=== PATIENT | male | born 1950 | race Two or more races ===

== ENCOUNTER → 2016-07-05 | Outpatient (CLI) | payer BC, OTHER ==
--- NOTE | 2016-07-05 13:03 | REP ---
LUMBOSACRAL SPINE SERIES: Six views of lumbosacral spine performed. There is no compression fracture or malalignment. There is normal lumbar lordosis. There is no spondylolysis or spondylolisthesis. There is mild disc space narrowing and subchondral sclerosis at L4-5 and L5-S1. There is sclerosis and spurring of the posterior facet joints at those levels as well. The posterior elements are intact. IMPRESSION: Mild degenerative changes. No fracture or dislocation. Signed by Jatin Blanc MD 07/05/2016 02:20 P
== END ==
LOC: M LRY 11:52
PROVIDERS: ATTEND Nurse Practitioner Family
DX: M54.5 Low back pain (principal)

== ENCOUNTER → 2016-07-08 | Outpatient (REF) | payer BC, OTHER ==
[2016-07-08 19:23] LABS: MEAN CORPUSCULAR HEMOGLOBIN 29.7 pg (27.0-33.0); MEAN CORPUSCULAR HGB CONC 33.7 g/dl (32.0-36.5); MEAN CORPUSCULAR VOLUME 88.1 fl (80.0-96.0); RED CELL DISTRIBUTION WIDTH 13.3 % (11.5-14.5); WHITE BLOOD COUNT 8.3 K/mm3 (4.0-10.0)
[2016-07-08 19:56] LABS: ALBUMIN 4.2 GM/DL (3.2-5.2); ALBUMIN/GLOBULIN RATIO 1.68 (1.00-1.93); ALKALINE PHOSPHATASE 90 U/L (45-117); ALT/SGPT 20 U/L (12-78); ANION GAP 6 MEQ/L (8-16); AST/SGOT 12 U/L (15-37); BILIRUBIN,TOTAL 0.6 MG/DL (0.2-1.0); BLOOD UREA NITROGEN 21 MG/DL (7-18); CALCIUM LEVEL 9.2 MG/DL (8.8-10.2); CARBON DIOXIDE LEVEL 29 MEQ/L (21-32); CHLORIDE LEVEL 105 MEQ/L (98-107); CHOLESTEROL LEVEL 239 MG/DL (<200); CREATININE FOR GFR 1.06 MG/DL (0.70-1.30); GLOMERULAR FILTRATION RATE > 60.0 (>49); GLUCOSE, FASTING 105 MG/DL (80-110); POTASSIUM SERUM 4.6 MEQ/L (3.5-5.1); SODIUM LEVEL 140 MEQ/L (136-145); TOTAL PROTEIN 6.7 GM/DL (6.4-8.2); TRIGLYCERIDES LEVEL 78 MG/DL (<150)
== END ==
LOC: M SFHCLERA 17:25
PROVIDERS: ATTEND Family Medicine
DX: M54.42 Lumbago with sciatica, left side (principal); E78.00 Pure hypercholesterolemia, unspecified; F17.200 Nicotine dependence, unspecified, uncomplicated

== ENCOUNTER → 2016-07-14 | Outpatient (CLI) | payer OTHER ==
--- NOTE | 2016-07-14 20:51 | REP ---
MRI PELVIS WITHOUT CONTRAST (SACRUM): 07/14/2016. Clinical history: Acute left-sided low back pain, no known injury. Symptoms 2 weeks duration. Technique: Coronal T1 fat suppressed T2 and STIR, sagittal fat suppressed T2 with axial T1 and fat suppressed T2 sequences provided. Comparison: CT abdomen pelvis 05/04/2012. Findings. Sacral ala show no marrow edema or fracture on either side. The SI joints intact. There is no fluid or widening of those SI joints. No signs of sacral ileitis on an acute basis or other significant finding. That portion of the iliac bone included is grossly intact. Sacral foramina symmetric. There are Tarlov cysts bilaterally at the second sacral segment. That portion of L5 included and its disc space were unremarkable. No abnormal signal on the fat-suppressed T2 sequences through the marrow of the sacrum, coccyx and adjacent iliac bones. Sagittal images confirm the L5 vertebral body and the L5-S1 disc space intact. No presacral soft tissue mass, fluid or other acute finding. Impression: 1. No MR evidence of sacral fracture, foraminal encroachment, SI joint fluid or sacroiliitis. 2. Adjacent iliac bones and that portion of L5 and the L5-S1 disc level intact.3. Tarlov cysts in the neural canal at the S2 level as variation. Signed by Ghanshyam Lomax MD 07/15/2016 01:08 P
--- NOTE | 2016-07-15 08:43 | REP ---
MRI LUMBAR SPINE WITHOUT CONTRAST: HISTORY: Back pain. Decreased signal intensity on T2-weighted images is present in the L4-5 and L5-S1 intervertebral discs. The discs are decreased in height. These findings are consistent with disc degeneration. There is no disc bulge or herniation at the L1-2 through L3-4 levels. There is hypertrophy of the posterior articulating facets at the L2-3 and L3-4 levels. The nerves exit the neural foramina without compression. A diffuse disc bulge and small left paracentral disc extrusion are present at the L4-5 level. There is inferior migration of disc material. There is minimal compression of the thecal sac and left L5 nerve as it exits the thecal sac and in the left L5 lateral recess. There is hypertrophy of the posterior articulating facets. The L4 nerves exit the neural foramina without compression. A diffuse disc bulge and small left paracentral disc protrusion are present at the L5-S1 level. There is minimal compression of the thecal sac and left S1 nerve as it exits the thecal sac. There is hypertrophy in the posterior articulating facets. The L5 nerves exit the neural foramina without compression. The conus medullaris is normal in appearance terminating at the level of the L1 vertebral body. There is minimal ectasia of the thecal sac at the S1 level. Normal signal intensity is present in the lumbar vertebral bodies. IMPRESSION: 1. Diffuse disc bulge and small left paracentral disc extrusion at the L4-5 level with minimal compression of the thecal sac and left L5 nerve as it exits the thecal sac and in the left L5 lateral recess. 2. Diffuse disc bulge and small left paracentral disc protrusion at the L5-S1 level with minimal compression of the thecal sac and left S1 nerve as it exits the thecal sac. Signed by Kwadwo De La Cruz MD 07/15/2016 08:47 A
== END ==
LOC: M RAD 17:42
PROVIDERS: ATTEND Family Medicine
DX: M51.26 Other intervertebral disc displacement, lumbar region (principal); M51.27 Other intervertebral disc displacement, lumbosacral region; G58.9 Mononeuropathy, unspecified; M54.42 Lumbago with sciatica, left side

== ENCOUNTER → 2016-09-20 | Outpatient (CLI) | payer OTHER ==
[~2016-09-20] MED LIST: ISOVUE-370 76% 100ML VIAL (Q9967) As Ordered ONE
--- NOTE | 2016-09-23 07:38 | REP ---
Clinical: Follow-up pulmonary nodule. Comparison: 05/26/2016. Findings: Advanced chronic COPD and emphysematous changes are appreciated along with predominately by apical scarring. The 2.3 cm solid lesion on prior examination now appears cavitary with mildly irregular wall thickening and small nodular components. No other obvious, significant nodule, consolidation or mass lesion is appreciated. Tracheobronchial tree is patent. No significant adenopathy. Thoracic aorta, heart and pericardium are normal. Surrounding musculoskeletal structures are intact. Limited evaluation of the upper abdomen demonstrates normal bilateral adrenal glands. Impression: 1. Previously noted solid left upper lobe lesion now appears cavitary with subtle irregular wall thickening and nodular components. Correlation with previous biopsy results and follow-up in 3-6 months may be warranted. 2. Chronic advanced COPD and emphysematous changes. 3. No further new, acute mediastinal or pleuroparenchymal process identified. Signed by Ambrocio Long MD 09/23/2016 07:30 A
== END ==
LOC: M RAD 14:27
PROVIDERS: ATTEND Family Medicine
DX: R91.1 Solitary pulmonary nodule (principal); J44.9 Chronic obstructive pulmonary disease, unspecified

== ENCOUNTER → 2016-11-29 | Outpatient (CLI) | payer OTHER ==
--- NOTE | 2016-11-30 00:30 | REP ---
Clinical: Inguinal pain with history of prior left hernia repair. Technique: Real time puente scale ultrasound examination using linear high frequency transducer. Findings: Directed ultrasound examination of the bilateral groin/inguinal canals demonstrates normal subcutaneous tissues and appearance without evidence for hernia. Impression: No obvious inguinal hernia identified bilaterally. Signed by Ambrocio Long MD 11/30/2016 12:21 A
== END ==
LOC: M RAD 13:22
PROVIDERS: ATTEND Family Medicine
DX: K40.90 Unilateral inguinal hernia, without obstruction or gangrene, not specified as recurrent (principal)

== ENCOUNTER → 2016-12-01 | Outpatient (CLI) | payer OTHER ==
[2016-12-05 14:10] LABS: BLASTOMYCES ANTIBODY LEVEL Negative (Neg:<1:1); CRYPTOCOCCUS ANTIGEN SER Negative (Negative); HISTOPLASMOSIS ANTIBODY Negative (Neg:<1:1); SJOGREN'S ANTI SS-A <0.2 AI (0.0-0.9); SJOGREN'S ANTI SS-B <0.2 AI (0.0-0.9)
[2016-12-07 06:29] LABS: COCCIDIOMYCOSIS ANTIBODY NEGATIVE (NEGATIVE)
== END ==
LOC: M SMT 10:01
PROVIDERS: ATTEND Internal Medicine Pulmonary Disease
DX: R91.1 Solitary pulmonary nodule (principal)

== ENCOUNTER → 2017-01-25 | Outpatient (CLI) | payer OTHER ==
--- NOTE | 2017-01-25 12:00 | REP ---
Clinical: Solitary pulmonary nodule. Comparison: 09/20/2016, 05/26/2016, 07/15/2015. Findings: Advanced COPD and emphysematous changes are appreciated along with extensive biapical scarring (left greater than right) which remains stable compared to 07/15/2015. No further pulmonary parenchymal consolidation, nodule or mass lesion identified. No pleural effusion/reaction or pneumothorax. Tracheobronchial tree is patent. No obvious adenopathy. Mediastinum demonstrates atherosclerotic changes to the thoracic aorta and coronary arteries without aortic aneurysm or cardiomegaly. No pericardial effusion. Surrounding musculoskeletal structures demonstrate age-related degenerative changes. Limited evaluation of the upper abdomen demonstrates normal bilateral adrenal glands. Impression: 1. Advanced COPD and emphysematous changes. 2. Biapical scarring (left greater than right) improved / stable compared to 07/15/2015. Specifically, the cavitary lesion in the periphery of the left upper lung zone lacks the previously noted soft tissue nodular components were identified on prior examinations. 3. No new acute mediastinal or pleuroparenchymal process is appreciated. In light of the above-mentioned findings which although appear improved, active process cannot definitively be excluded and follow-up examination at 9-12 months may be warranted. Signed by Ambrocio Long MD 01/25/2017 11:51 A
== END ==
LOC: M RAD 11:21
PROVIDERS: ATTEND Internal Medicine Pulmonary Disease
DX: R91.1 Solitary pulmonary nodule (principal); J44.9 Chronic obstructive pulmonary disease, unspecified

== ENCOUNTER → 2017-08-03 | Outpatient (CLI) | payer OTHER | LOC: M RAD 10:38 | DX: R91.1 Solitary pulmonary nodule (principal); J44.9 Chronic obstructive pulmonary disease, unspecified | CPT/HCPCS: 71250 ==

== ENCOUNTER → 2018-06-06 | Outpatient (CLI) | payer MEDICARE, OTHER ==
--- NOTE | 2018-06-06 15:27 | REP ---
Chest two views HISTORY: Pulmonary nodule Comparison: None A minimal increase in interstitial markings is present in the lungs consistent with chronic interstitial change. Linear densities are present in the upper lobes consistent with scarring. The heart is normal in size. The pulmonary vasculature is normal in appearance. The bony structure is intact. IMPRESSION: 1. Chronic interstitial change. 2. Bilateral upper lobe scarring miles Electronically Signed by Kwadwo De La Cruz MD 06/06/2018 03:19 P
== END ==
LOC: M RAD 14:41
PROVIDERS: ATTEND Internal Medicine Pulmonary Disease
DX: R91.1 Solitary pulmonary nodule (principal); J84.9 Interstitial pulmonary disease, unspecified

== ENCOUNTER → 2018-08-16 | Outpatient (CLI) | payer OTHER ==
--- NOTE | 2018-08-16 15:38 | REP ---
Clinical: Lung screening. History smoking. Comparison: 08/03/2017, 09/20/2016 Technique: Axial low-dose noncontrast images from the thoracic inlet to the upper abdomen using lung screening technique. Findings: The lung ashby demonstrate advanced COPD/emphysematous changes along with scattered scarring including scarring in the periphery of the left upper to mid lung zone with 1.8 cm nodular component along the periphery of the left apex and 2 cm cavitary component along the periphery of the mid left upper lobe. These findings appear essentially stable when compared through 09/20/2016. No new, acute nodule or mass lesion is appreciated. No pleural effusion. No pneumothorax. Tracheobronchial tree again demonstrates moderate chronic bronchiectasis. Atherosclerotic changes to the thoracic aorta and coronary arteries noted. Impression: 1. Lung-RADS category I-S. Advanced COPD/emphysematous changes with considerable elements of scarring including stable chronic nodular mass in the left apex and 2 cm cavitary area in the periphery of the left upper lobe. 2. Management recommendations include annual low-dose CT evaluation. Electronically Signed by Amrbocio Long MD 08/16/2018 03:29 P
== END ==
LOC: M RAD 13:01
PROVIDERS: ATTEND Internal Medicine Pulmonary Disease
DX: Z12.2 Encounter for screening for malignant neoplasm of respiratory organs (principal); F17.218 Nicotine dependence, cigarettes, with other nicotine-induced disorders

== ENCOUNTER → 2018-11-09 | Outpatient (CLI) | payer OTHER ==
[2018-11-09 13:08] LABS: BASO # 0.1 10^3/uL (0.0-0.2); BASO % 0.5 % (0.0-1.0); EOS % 0.2 % (0.0-3.0); LYMPH # 1.2 10^3/uL (1.5-4.5); LYMPH % 11.8 % (24.0-44.0); MEAN CORPUSCULAR HEMOGLOBIN 30.8 pg (27.0-33.0); MEAN CORPUSCULAR HGB CONC 34.1 g/dl (32.0-36.5); MEAN CORPUSCULAR VOLUME 90.1 fl (80.0-96.0); MONO # 1.1 10^3/uL (0.0-0.8); MONO % 10.5 % (0.0-5.0); NEUTROPHILS # 7.9 10^3/uL (1.8-7.7); NEUTROPHILS % 76.2 % (36.0-66.0); PLATELET COUNT, AUTOMATED 150 10^3/uL (150-450); RED BLOOD COUNT 4.55 10^6/uL (4.30-6.10); WHITE BLOOD COUNT 10.4 10^3/uL (4.0-10.0)
== END ==
LOC: M WUC 11:34
PROVIDERS: ATTEND Physician Assistant
DX: L03.115 Cellulitis of right lower limb (principal)

== ENCOUNTER → 2019-08-20 | Outpatient (CLI) | payer OTHER ==
--- NOTE | 2019-08-20 15:28 | REP ---
REASON: Chronic lung disease. COMPARISON: Multiple, the latest 08/16/2018. As per the protocol only lung window images were sent to the read station for interpretation. Once again, there is rather marked appearing chronic emphysematous change with lung field hyperexpansion, cylindrical bronchiectasis, biapical pleural parenchymal scarring, scattered lung nodules, and unchanged cavitary lesion in the left upper lobe. No definite new abnormal nodules, mass, or opacities have developed. Grossly the imaged upper abdomen and imaged osseous structures are unchanged. Grossly, the mediastinum and pulmonary shauna are unchanged. IMPRESSION: Stable low dose scarring CT examination of the lungs with chronic changes as described above. Lung-RADS category 2S. The small nodule seen in the left upper lobe is stable. Electronically Signed by Robert Marks DO 08/20/2019 04:10 P
== END ==
LOC: M RAD 13:15
PROVIDERS: ATTEND Internal Medicine Pulmonary Disease
DX: Z12.2 Encounter for screening for malignant neoplasm of respiratory organs (principal); F17.218 Nicotine dependence, cigarettes, with other nicotine-induced disorders; R91.8 Other nonspecific abnormal finding of lung field; J44.9 Chronic obstructive pulmonary disease, unspecified

== ENCOUNTER → 2020-08-25 | Outpatient (CLI) | payer OTHER ==
--- NOTE | 2020-08-26 02:50 | REP ---
INDICATION: NICOTINE DEPENDENCE COMPARISON: Multiple examinations dating through 09/20/2016 TECHNIQUE: Axial noncontrast images from the thoracic inlet to the upper abdomen using low-dose lung screening technique (LDCT). FINDINGS: Advanced COPD/emphysematous changes with scattered fibrosis and bronchiectasis noted bilaterally including moderate somewhat nodular biapical scarring which appears relative stable as compared with multiple prior examinations. Along the inferior margin of the left upper lobe scarring is a currently solid-appearing somewhat triangular soft tissue area measuring roughly 18 mm (series 201 images 32) which on all prior examinations appeared predominately cavitary. While this may represent chronic scarring, active solid forming process cannot be excluded. A small adjacent 3 mm nodule is also identified which is unchanged compared with 2019. No further suspicious consolidation, nodule or mass lesion identified. IMPRESSION: 1. Lung-RADS category 4A with new 18 mm solid density at a previously noted cavitary lesion in the left upper lobe. Management recommendations include PET-CT and/or 3 month low-dose CT follow-up. 2. Underlying advanced emphysematous disease. <Electronically signed by Ambrocio Long > 08/26/20 [id number]
== END ==
LOC: M RAD 13:41
PROVIDERS: ATTEND Internal Medicine Pulmonary Disease
DX: F17.218 Nicotine dependence, cigarettes, with other nicotine-induced disorders (principal); R91.8 Other nonspecific abnormal finding of lung field

== ENCOUNTER → 2020-09-16 | Outpatient (CLI) | payer OTHER ==
--- NOTE | 2020-09-16 13:19 | REP ---
INDICATION: DIAGNOSING PULMONARY NODULE. COMPARISON: Comparison CT studies August 25, 2020 and August 20, 2019. Prior studies from August 16, 2018 and August 03, 2017 are also reviewed.. TECHNIQUE: Forty-nine minutes following the intravenous injection of a 16.72 mCi dose of F-18 FDG, three-dimensional PET scintigraphy is acquired from the skull base to the proximal thighs. Triplanar noncontrast CT scanning is acquired through the same anatomic range for attenuation correction, and image registration with scan parameters optimized to minimize radiation exposure to the patient. PET scintigraphy and CT datasets were fused and displayed on a workstation with multiplanar and projection display capability. FINDINGS: Incidental findings include a 4.1 cm infrarenal abdominal aortic aneurysm. In addition, there is intrarenal nephrolithiasis with a 3 mm calculus in the lower pole collecting system on the right. No hydronephrosis is seen. Head and neck soft tissues are unremarkable. There is no abnormal hypermetabolic uptake within the chest. The left apical pleuroparenchymal fibrosis shows no discernible FDG accumulation, maximum SUV value 1.18. The recently described nodule in the left upper lobe just below this has maximum SUV value of 1.29. No abnormal hypermetabolic pulmonary parenchymal uptake is seen. No hilar or mediastinal hypermetabolic fahad uptake is seen. In the abdomen and pelvis there is normal distribution of FDG PET activity. No abnormal hypermetabolic uptake is seen in the abdomen or pelvis. IMPRESSION: Negative PET scintigraphy. The nodular opacities in the left upper lobe are not hypermetabolic. Follow-up advised. Incidental note is made of a 4.1 cm infrarenal abdominal aortic aneurysm <Electronically signed by Duran Dorado > 09/16/20 [id number]
== END ==
LOC: M PLARAD 09:41
PROVIDERS: ATTEND Internal Medicine Pulmonary Disease
DX: R91.1 Solitary pulmonary nodule (principal); I71.4 Abdominal aortic aneurysm, without rupture
CPT/HCPCS: 78815; A9552

== ENCOUNTER → 2020-10-28 | Outpatient (REF) | payer OTHER ==
[~2020-10-28] MED LIST changes: +FLOM0.4C39 PO; -ISOVUE-370 76% 100ML VIAL (Q9967) As Ordered ONE
== END ==
LOC: M SFHCLERA 15:46
PROVIDERS: ATTEND Nurse Practitioner Family
DX: R35.0 Frequency of micturition (principal)

== ENCOUNTER 2020-10-29 05:15 | Emergency (ER) | payer OTHER ==
[~2020-10-29] VITALS: Ht 172.7 cm; Wt 69.1 kg
[2020-10-29] MEDS ORDERED: NS 1,000 ML IV ONE (06:40)
[2020-10-29 07:02] LABS: BASO # 0.1 10^3/uL (0.0-0.2); BASO % 0.6 % (0.0-1.0); EOS % 0.1 % (0.0-3.0); HEMATOCRIT 42.8 % (42.0-52.0); HEMOGLOBIN 14.8 g/dl (13.5-17.5); LYMPH # 0.9 10^3/uL (1.5-5.0); MEAN CORPUSCULAR HEMOGLOBIN 31.2 pg (27.0-33.0); MEAN CORPUSCULAR HGB CONC 34.6 g/dl (32.0-36.5); MEAN CORPUSCULAR VOLUME 90.1 fl (80.0-96.0); MONO # 0.5 10^3/uL (0.0-0.8); NEUTROPHILS # 11.1 10^3/uL (1.5-8.5); NEUTROPHILS % 87.4 % (36.0-66.0); PLATELET COUNT, AUTOMATED 144 10^3/uL (150-450); RED BLOOD COUNT 4.75 10^6/uL (4.30-6.10); WHITE BLOOD COUNT 12.7 10^3/uL (4.0-10.0)
--- NOTE | 2020-10-29 07:11 | REPVR ---
PROCEDURE INFORMATION: Exam: CT Abdomen And Pelvis Without Contrast Exam date and time: 10/29/2020 5:49 AM Age: 69 years old Clinical indication: Abdominal pain; Flank; Left; Additional info: Flank pain, h/o stones TECHNIQUE: Imaging protocol: Computed tomography of the abdomen and pelvis without contrast. Radiation optimization: All CT scans at this facility use at least one of these dose optimization techniques: automated exposure control; mA and/or kV adjustment per patient size (includes targeted exams where dose is matched to clinical indication); or iterative reconstruction. COMPARISON: 1. PT PET/CT Skull/mid thigh 09/16/2020 11:[address] Chest with contrast 09/20/2016 2:49:43 PM FINDINGS: Lungs: Emphysema noted at the lung bases. No consolidation. Liver: Redemonstration of a subtle hypodensity within the lateral segment of the left hepatic lobe which corresponds to a hemangioma noted on [address] Few subcentimeter hypodensities within the liver, too small to accurately characterize. Gallbladder and bile ducts: No calcified gallstones. No ductal dilatation. Pancreas: Unremarkable. No ductal dilatation. Spleen: Stable mild splenomegaly (13 cm). Adrenal glands: Unremarkable. No mass. Kidneys and ureters: Mild left hydronephrosis and perinephric stranding. Left hydroureter and periureteral stranding with dilatation of the left ureter down to the level of the urinary bladder where there is a 3 mm calculus perched at the left ureteral orifice. Bilateral nephrolithiasis with a 4 mm calculus within the lower pole of the right kidney and a punctate few mm calculus within the midpole of the left kidney. No hydronephrosis on the right. Stomach and bowel: Colonic diverticulosis. No acute diverticulitis. No obstruction. Appendix: Normal appendix. Intraperitoneal space: No free fluid. No free air. Vasculature: Atherosclerosis. Infrarenal abdominal aortic aneurysm measuring 4.1 cm AP by 4.4 cm transverse, stable when compared to the recent PET CT when measured at the same level. No rupture. Lymph nodes: Unremarkable. No enlarged lymph nodes. Urinary bladder: Unremarkable as visualized. Reproductive: Mild enlargement of the prostate gland. Bones/joints: Bones are stable. Mild degenerative changes. No fracture. Soft tissues: Surgical clips within the inguinal regions. Fat containing left inguinal hernia. IMPRESSION: 1. Left obstructive uropathy with mild left hydronephrosis and hydroureter secondary to a 3 mm calculus within the urinary bladder perched at the left ureteral orifice. 2. Bilateral nephrolithiasis. 3. Stable infrarenal abdominal aortic aneurysm, 4.1 x 4.4 cm. 4. Colonic diverticulosis. No acute diverticulitis. No obstruction. 5. Additional non-emergent findings, as discussed above. Electronically signed by: Ambrocio Parks On 10/29/2020 07:11:43 AM
[2020-10-29 07:28] LABS: ALBUMIN 3.4 GM/DL (3.2-5.2); ALT/SGPT 16 U/L (12-78); BILIRUBIN,DIRECT 0.1 MG/DL (0.0-0.2); BILIRUBIN,TOTAL 0.7 MG/DL (0.2-1.0); BLOOD UREA NITROGEN 17 MG/DL (7-18); CALCIUM LEVEL 8.9 MG/DL (8.8-10.2); CARBON DIOXIDE LEVEL 27 MEQ/L (21-32); CHLORIDE LEVEL 108 MEQ/L (98-107); CREATININE FOR GFR 1.14 MG/DL (0.70-1.30); GLOMERULAR FILTRATION RATE > 60.0 (>49); GLUCOSE, FASTING 124 MG/DL (70-100); LIPASE 124 U/L (73-393); POTASSIUM SERUM 3.8 MEQ/L (3.5-5.1); SODIUM LEVEL 142 MEQ/L (136-145)
[2020-10-29] MEDS ORDERED: FLOM0.4C39 PO (08:39)
[2020-10-29 08:55] VITALS: BP 133/61
--- NOTE | 2020-10-30 15:13 | ED PDOC ---
Post-Departure Follow-Up eugene stephens faxed formal report of ct abd/p for fu Nurys Pinto MD Oct 30, 2020 15:13
== END 2020-10-29 08:57 | disposition home or self-care (01) ==
LOC: M ED 05:15
DX: N23 Unspecified renal colic (principal); N13.2 Hydronephrosis with renal and ureteral calculous obstruction; N13.4 Hydroureter; I71.4 Abdominal aortic aneurysm, without rupture; Z87.442 Personal history of urinary calculi; Z87.448 Personal history of other diseases of urinary system; J44.9 Chronic obstructive pulmonary disease, unspecified; R91.1 Solitary pulmonary nodule; F17.200 Nicotine dependence, unspecified, uncomplicated; F12.10 Cannabis abuse, uncomplicated; Z84.1 Family history of disorders of kidney and ureter; I70.90 Unspecified atherosclerosis; K40.90 Unilateral inguinal hernia, without obstruction or gangrene, not specified as recurrent; R93.2 Abnormal findings on diagnostic imaging of liver and biliary tract; R16.1 Splenomegaly, not elsewhere classified

== ENCOUNTER 2020-11-24 05:23 | Emergency (ER) | payer OTHER ==
[~2020-11-24] VITALS: Ht 172.7 cm; Wt 61.4 kg
[2020-11-24] MEDS ORDERED: KETOROLAC 30 MG/ML 1ML VIAL IV ONE (05:40)
--- NOTE | 2020-11-24 07:18 | REPVR ---
PROCEDURE INFORMATION: Exam: CT Abdomen And Pelvis Without Contrast Exam date and time: 11/24/2020 5:49 AM Age: 69 years old Clinical indication: Abdominal pain; Flank; Right; Additional info: Right renal colic TECHNIQUE: Imaging protocol: Computed tomography of the abdomen and pelvis without contrast. Radiation optimization: All CT scans at this facility use at least one of these dose optimization techniques: automated exposure control; mA and/or kV adjustment per patient size (includes targeted exams where dose is matched to clinical indication); or iterative reconstruction. COMPARISON: 1. PT PET/CT Skull/mid thigh 09/16/2020 11:02:[address] ABD PELVIS W/O CONTRAST 10/29/2020 5:54 AM FINDINGS: Lungs: Emphysematous lung disease. Liver: Subtle hypodense lesion in the left hepatic lobe measuring 2.0 cm. Several other small hypodense lesions in the liver measuring up to 5 mm. Gallbladder and bile ducts: Normal. No calcified stones. No ductal dilation. Pancreas: Normal. No ductal dilation. Spleen: Normal. No splenomegaly. Adrenal glands: Normal. No mass. Kidneys and ureters: Moderate right hydronephrosis. Stone in the mid right ureter measuring 3 x 2 x 3 mm. No left hydronephrosis. Hypodense lesion in the upper pole of the left kidney measuring 10 mm. Punctate nonobstructive stone in the upper pole of left kidney. Stomach and bowel: Sigmoid diverticulosis without diverticulitis. No abnormal bowel dilatation. No abnormal bowel wall thickening. Small sliding-type gastric hiatal hernia. Appendix: Appendix is normal. Intraperitoneal space: Unremarkable. No free air. No significant fluid collection. Vasculature: Severe calcified atherosclerotic disease. Fusiform infrarenal abdominal aortic aneurysm measuring 4.1 x 4.3 cm. No evidence of rupture. Lymph nodes: Unremarkable. No enlarged lymph nodes. Urinary bladder: Unremarkable as visualized. Reproductive: Prostate is normal in size. Bones/joints: Unremarkable. No acute fracture. Soft tissues: Status post bilateral inguinal hernia repair. Recurrent small left inguinal hernia containing fat. IMPRESSION: 1. Moderate right hydronephrosis with obstructive mid ureteral stone. 2. Punctate nonobstructive stone in the left kidney. 3. Hypodense lesion in the left hepatic lobe. Consistent with known hemangioma. No change from prior. 4. Several other small hypodense lesions in the liver measuring up to 5 mm. Probably benign lesions. 5. Status post bilateral inguinal hernia repair. 6. Recurrent small left inguinal hernia containing fat. No change from prior. 7. Emphysematous lung disease. COMMENTS: Consistent with the [employer]'s Incidental Findings Committee white paper (J Am Cathy Radiol 2018): Any incidental renal lesion less than 1 cm or classified as too small to characterize, or any incidental cystic renal lesion characterized as simple-appearing, is likely benign. No follow-up imaging is recommended for these lesions per consensus recommendations based on imaging criteria. Electronically signed by: Josue Shahid On 11/24/2020 07:17:41 AM
[2020-11-24] MEDS ORDERED: IBUP-1022 PO (07:24)
[2020-11-24] MEDS ORDERED: FLOM0.4C39 PO (07:25)
[2020-11-24] MEDS ORDERED: PERC5TAB12 PO (07:26)
[2020-11-24] MEDS ORDERED: TAMSULOSIN 0.4 MG CAP PO ONE (07:30)
[2020-11-24] MEDS ORDERED: MORPHINE 4 MG/ML 1ML VIAL/SYRINGE (J2270) IV ONE (07:30)
[2020-11-24] MEDS ORDERED: MORPHINE 2 MG/ML 1ML VIAL (J2270) IV ONE (07:35)
[2020-11-24] MEDS ORDERED: NS 1,000 ML IV ONE (07:35)
[2020-11-24 09:00] VITALS: BP 130/74
--- NOTE | 2020-11-26 11:03 | ED PDOC ---
Post-Departure Follow-Up ct abd/p faxed to dr barboza for fu Nurys Pinto MD Nov 26, 2020 11:03
== END 2020-11-24 09:08 | disposition home or self-care (01) ==
LOC: M ED 05:23
DX: N23 Unspecified renal colic (principal); N13.2 Hydronephrosis with renal and ureteral calculous obstruction; K76.89 Other specified diseases of liver; J43.9 Emphysema, unspecified; F17.200 Nicotine dependence, unspecified, uncomplicated; Z79.899 Other long term (current) drug therapy
CPT/HCPCS: 74176; 80047; 81001; 96374; 96375; 99284; J1885; J2270

== ENCOUNTER → 2021-03-25 | Outpatient (CLI) | payer OTHER ==
[~2021-03-25] MED LIST changes: +IBUP-1022 PO; +PERC5TAB12 PO
--- NOTE | 2021-03-25 18:15 | REP ---
INDICATION: SOLITARY PULMONARY NODULE. COMPARISON: Low-dose screening CT 08/25/2020, 08/20/2019; CT 08/03/2017 TECHNIQUE: Noncontrast scanning with coronal and sagittal reconstructions provided FINDINGS: The lung ashby show hyperinflation with bullous emphysematous changes quite severe but stable. The left upper lobe peripheral lesion with stranding towards the hilum as a solid character as on 08/25/2020 but was previously cavitary lesion. There are some calcifications within this on this tissue windows. However the pattern is NOT that of a clearly benign densely calcified granuloma. Bronchiectatic changes are again noted. The other zone of the asymmetric scarring in the left apex and to a much lesser degree right apex appear unchanged prominent parenchymal bullae in both apices right greater than left. No pleural effusion, pleural plaque with calcification, acute infiltrate or new lesions. Heart is not enlarged. There are some coronary artery calcifications. No pericardial thickening or effusion. The aorta is without aneurysm no pathologic sized mediastinal or hilar adenopathy. There is no axillary or supraclavicular mass. Bone windows show the spine, sternum, manubrium, medial clavicles, scapulae, humeral heads and ribs without fracture or focal lesion. Upper abdomen shows those portions of liver, spleen, gallbladder and pancreas to be unchanged. There is an infrarenal abdominal aortic aneurysm seen only in part but with maximum AP diameter 3.86 cm. Adrenal glands unremarkable. IMPRESSION: Previously noted cavitary lesion is now a solid triangular shaped nodule left upper lobe with stranding. Above this, a prominent area of scarring in the left apex and 1 smaller on the right are again seen and unchanged. No new or acute finding otherwise in the lung ashby. Advanced COPD and bullous emphysematous changes with bronchiectatic findings. No other significant or new findings. A known infrarenal abdominal aortic aneurysm is seen almost 3.9 cm in AP diameter but only partially imaged. <Electronically signed by Ghanshyam Lomax > 03/25/21 [id number]
== END ==
LOC: M RAD 14:03
PROVIDERS: ATTEND Internal Medicine Pulmonary Disease
DX: J44.9 Chronic obstructive pulmonary disease, unspecified (principal); J43.9 Emphysema, unspecified; I71.4 Abdominal aortic aneurysm, without rupture; R91.1 Solitary pulmonary nodule; R91.8 Other nonspecific abnormal finding of lung field

== ENCOUNTER → 2021-09-30 | Outpatient (CLI) | payer OTHER | LOC: M PLAIMG 08:43 | PROVIDERS: ATTEND Internal Medicine Pulmonary Disease | DX: R91.8 Other nonspecific abnormal finding of lung field (principal) ==

== ENCOUNTER → 2022-02-26 | Outpatient (CLI) | payer OTHER | LOC: M WHC 08:35 | PROVIDERS: ATTEND Family Medicine | DX: I71.40 Abdominal aortic aneurysm, without rupture, unspecified (principal) ==

== ENCOUNTER → 2022-11-19 | Outpatient (CLI) | payer OTHER | LOC: M RAD 08:45 | PROVIDERS: ATTEND Internal Medicine Pulmonary Disease | DX: R91.8 Other nonspecific abnormal finding of lung field (principal); R91.1 Solitary pulmonary nodule; J44.9 Chronic obstructive pulmonary disease, unspecified ==

== ENCOUNTER → 2023-04-11 | Outpatient (CLI) | payer OTHER | LOC: M RAD 09:02 | PROVIDERS: ATTEND Family Medicine | DX: I71.43 Infrarenal abdominal aortic aneurysm, without rupture (principal) ==

== ENCOUNTER → 2024-04-05 | Outpatient (CLI) | payer OTHER | LOC: M RAD 12:45 | PROVIDERS: ATTEND Internal Medicine Pulmonary Disease | DX: Z12.2 Encounter for screening for malignant neoplasm of respiratory organs (principal); F17.218 Nicotine dependence, cigarettes, with other nicotine-induced disorders; R91.1 Solitary pulmonary nodule ==

== ENCOUNTER → 2024-07-10 | Outpatient (CLI) | payer OTHER ==
[2024-07-10 09:38] LABS: BASO # 0.1 10^3/uL (0.0-0.2); BASO % 0.8 % (0.0-1.0); EOS % 0.4 % (0.0-3.0); HEMATOCRIT 45.8 % (42.0-52.0); HEMOGLOBIN 15.9 g/dl (13.5-17.5); LYMPH # 1.5 10^3/uL (1.5-5.0); LYMPH % 18.2 % (24.0-44.0); MEAN CORPUSCULAR HEMOGLOBIN 32.6 pg (27.0-33.0); MEAN CORPUSCULAR HGB CONC 34.7 g/dl (32.0-36.5); MONO # 0.6 10^3/uL (0.0-0.8); MONO % 7.4 % (2.0-8.0); NEUTROPHILS % 72.7 % (36.0-66.0); PLATELET COUNT, AUTOMATED 161 10^3/uL (150-450); RED BLOOD COUNT 4.87 10^6/uL (4.30-6.10); WHITE BLOOD COUNT 8.3 10^3/uL (4.0-10.0)
[2024-07-10 10:09] LABS: BLOOD UREA NITROGEN 17 MG/DL (9-23); CALCIUM LEVEL 9.5 MG/DL (8.3-10.6); CARBON DIOXIDE LEVEL 29 MMOL/L (20-31); CHLORIDE LEVEL 108 MMOL/L (98-107); CHOLESTEROL LEVEL 184 MG/DL (<200); CHOLESTEROL RISK RATIO 3.13 (<5); CREATININE FOR GFR 0.98 MG/DL (0.70-1.30); GLOMERULAR FILTRATION RATE > 60.0 (>42); GLUCOSE, FASTING 125 MG/DL (74-106); HDL CHOLESTEROL 58.6 MG/DL (>40); LDL CHOLESTEROL 111.2 MG/DL (<100); NON-HDL-C 125.4 MG/DL; POTASSIUM SERUM 4.3 MMOL/L (3.5-5.1); SODIUM LEVEL 144 MMOL/L (136-145); TRIGLYCERIDES LEVEL 71 MG/DL (<150)
== END ==
LOC: M RAD 08:49
PROVIDERS: ATTEND Family Medicine
DX: I71.40 Abdominal aortic aneurysm, without rupture, unspecified (principal); I74.09 Other arterial embolism and thrombosis of abdominal aorta; I70.0 Atherosclerosis of aorta

== ENCOUNTER → 2024-08-02 | Outpatient (CLI) | payer OTHER | LOC: M RAD 10:24 | PROVIDERS: ATTEND Family Medicine | DX: K40.90 Unilateral inguinal hernia, without obstruction or gangrene, not specified as recurrent (principal); Z87.19 Personal history of other diseases of the digestive system; Z98.890 Other specified postprocedural states ==

== ENCOUNTER 2024-12-10 06:02 | Day surgery (SDC) | payer OTHER ==
[2024-11-12] MEDS: ceFAZolin SOD 2 GM IV ONCE IV ONE (07:46)
[~2024-12-10] VITALS: Ht 172.7 cm; Wt 58.5 kg
[~2024-12-10 06:02] MED LIST changes: +BEVE1AER INH; -FLOM0.4C39 PO; +TAMS-18 PO
[2024-12-10] MEDS ORDERED: LR 1,000 ML IV SCH ×2 (06:25→09:35)
[2024-12-10] MEDS: ceFAZolin SODIUM 2 GM in DEXTROSE 5% (D5W) ADV/MINI-BAG 50 ML IV ONE (06:25)
[2024-12-10] MEDS ORDERED: LIDOCAINE 2% 100 MG/5 ML SDV (FOR ANES.) As Ordered ONE (07:02)
[2024-12-10] MEDS ORDERED: ROCURONIUM BROMIDE 50MG/5ML VIAL As Ordered ONE (07:02)
[2024-12-10] MEDS ORDERED: SUGAMMADEX SODIUM 200 MG/2 ML VIAL As Ordered ONE (07:02)
[2024-12-10] MEDS ORDERED: dexAMETHasone 4 MG/ML 1 ML VIAL As Ordered ONE (07:03)
[2024-12-10] MEDS ORDERED: ONDANSETRON 4MG 2ML VIAL As Ordered ONE (07:03)
[2024-12-10] MEDS ORDERED: MIDAZOLAM INJ 2 MG/2 ML VIAL As Ordered ONE (07:07)
[2024-12-10] MEDS ORDERED: GLYCOPYRROLATE INJ 0.2 MG/ML 2 ML VIAL As Ordered ONE (07:41)
[2024-12-10] MEDS ORDERED: PHENYLephrine 500MCG 5ML (100MCG/ML) SYRINGE As Ordered ONE (07:48)
[2024-12-10] MEDS: HEPARIN SOD 5000 UNITS/ML 1 ML VIAL/SYRINGE SQ ONE (07:56)
[2024-12-10] MEDS ORDERED: ACETAMINOPHEN 1000MG/100ML IV BAG As Ordered ONE (07:56)
[2024-12-10] MEDS ORDERED: HYDROmorphone HCL 2 MG/ML 1 ML VIAL As Ordered ONE (08:14)
[2024-12-10] MEDS ORDERED: HYDROMORPHONE HCL 0.5 MG/0.5 ML SYRINGE IV PRN (09:35)
[2024-12-10] MEDS ORDERED: dexmedeTOMIDine (4 MCG/ML) 200 MCG/50 ML BTL As Ordered ONE (09:54)
[2024-12-10] MEDS: KETOROLAC 30 MG/ML 1 ML VIAL IV ONE (10:10)
[2024-12-10] MEDS: ONDANSETRON 4MG 2ML VIAL IV PRN (10:10)
[2024-12-10 11:50] VITALS: BP 137/63; TEMP 97.3; O2SAT 94
== END 2024-12-10 11:52 | disposition home or self-care (01) ==
LOC: M SDC 06:02
PROVIDERS: ATTEND Surgery
DX: K40.91 Unilateral inguinal hernia, without obstruction or gangrene, recurrent (principal); Z87.891 Personal history of nicotine dependence; J44.9 Chronic obstructive pulmonary disease, unspecified; Z79.899 Other long term (current) drug therapy
CPT/HCPCS: 49651; C1781; J0131; J0665; J1100; J1171; J1596; J1885; J2250; J2371; J2405; J3010

== ENCOUNTER → 2025-04-24 | Outpatient (CLI) | payer OTHER ==
[~2025-04-24] MED LIST changes: -IBUP-1022 PO; +IBUP600T42 PO
== END ==
LOC: M RAD 14:40
PROVIDERS: ATTEND Internal Medicine Pulmonary Disease
DX: Z12.2 Encounter for screening for malignant neoplasm of respiratory organs (principal); Z87.891 Personal history of nicotine dependence